=== PATIENT | male | born 1945 | race Caucasian/White ===

== ENCOUNTER 2019-11-11 09:53 | Day surgery (SDC) | payer MEDICARE ==
[2019-11-11] MEDS ORDERED: LACTATED RINGERS 1,000 ML IV SCH (10:07)
[2019-11-11 10:17] VITALS: RESP 16; TEMP 98.3
[2019-11-11] MEDS ORDERED: LIDOCAINE 1% INJ 10MG/ML (20 ML MDV) ONE (10:31)
[2019-11-11] MEDS ORDERED: PROPOFOL 10 MG/ML 20 ML VIAL IV ONE (10:31)
[2019-11-11] MEDS ORDERED: METOPROLOL TARTRATE 5 MG/5 ML VIAL IVP ONE (10:31)
--- NOTE | 2019-11-11 11:24 | P.PCN ---
Date of Procedure: 11/11/19 Description of Procedure: BRIEF HISTORY: Patient is a 74-year-old male presenting for outpatient colonoscopy for follow- up after positive Cologard. Denies any change in bowel habits, blood per rectum or abdominal pain. Does report occasionally having constipation and pain in the left lower quadrant of his abdomen. Last colonoscopy 12 years ago and incomplete per the patient's recollection secondary to severe diverticulosis. PROCEDURE PERFORMED: Colonoscopy with polypectomy. PREOPERATIVE DIAGNOSIS: Positive Cologard, last colonoscopy 12 years ago. ESTIMATED BLOOD LOSS: Minimal. IV sedation per Anesthesia. PROCEDURE: After informed consent was obtained, the patient, was brought into the endoscopy unit. IV sedation was administered by Anesthesia under continuous monitoring. Digital rectal examination was normal. Initially the Olympus CF-190 flexible video colonoscope was then inserted in the rectum, gradually advanced into the cecum without any difficulty. Careful examination was performed as the scope was gradually being withdrawn. Ileocecal valve and the appendiceal orifice were visualized and appeared normal. Prep was good, with some large stool balls secondary to severe diverticulosis. Mucosa of the cecum, ascending colon, transverse colon, descending colon, sigmoid colon, and rectum appeared normal, except for innumerable small and large diverticula noted throughout the colon with a sigmoid stricture related to the diverticula. Diminutive 3 mm sigmoid polyp removed with cold forcep polypectomy.. Retroflexion was performed in the rectum and no lesions were seen. The patient tolerated the procedure well. IMPRESSION: Severe gillis diverticulosis. Sigmoid stricture related to severe diverticulosis. Diminutive sigmoid polyp removed with cold forcep polypectomy. RECOMMENDATIONS: Findings of this examination were discussed with the patient and his family. Okay to resume diet. Okay to resume medication. Await pathology from polypectomy. Given patient's age, any future plans for endoscopy or screening will have to be made in discussion with Dr. Alvarado with repeat colonoscopy recommended in 7 years if medically stable.
[2019-11-11 12:03] VITALS: BP 171/91; PULSE 57
== END 2019-11-11 12:34 | disposition home or self-care (01) ==
LOC: ORWHC2ENDO 09:53
PROVIDERS: ATTEND Internal Medicine
DX: K63.5 Polyp of colon (principal); K57.30 Diverticulosis of large intestine without perforation or abscess without bleeding; K63.3 Ulcer of intestine; I10 Essential (primary) hypertension; Z88.8 Allergy status to other drugs, medicaments and biological substances; Z98.890 Other specified postprocedural states; Z79.899 Other long term (current) drug therapy; Z87.891 Personal history of nicotine dependence
CPT/HCPCS: 88305; 45380; J2001; J2704

== ENCOUNTER → 2022-03-18 | Outpatient (CLI) | payer MEDICARE ==
[2022-03-18 09:55] LABS: Partial Thromboplastin Time 26.6 sec (22.0-30.0); Prothrombin Time 10.5 sec (9.0-12.0)
[2022-03-18 16:20] LABS: HGB 15.2 g/dL (13.0-17.0); MCH 29.6 pg (27.0-32.0); MCHC 32.3 g/dL (32.0-37.0); MCV 91.4 fL (80.0-97.0); Mean Platelet Volume 9.8 fL (9.5-12.2); NRBC Per 100 WBC 0 /100 WBCS (0.0-0.0); Platelet Count 339 X 10*3/uL (140-440); RBC 5.14 X 10*6/uL (4.40-5.60); RDW 13.1 % (11.5-14.5); WBC 7.54 X 10*3/uL (4.50-10.00)
[2022-03-18 17:44] LABS: Appearance,Urine Clear (Clear); Bilirubin,Urine Negative (Negative); Blood,Urine Negative (Negative); Color,Urine Yellow (Yellow); Ketones,Urine Negative (Negative); Nitrite,Urine Negative (Negative); Specific Gravity,Urine 1.014 (1.001-1.030); Urobilinogen,Urine 0.2 (0.2,1.0)
[2022-03-18 18:07] LABS: African American GFR (CKD) 72.3 (60.0-200.0); Albumin 4.3 g/dL (3.8-4.9); Albumin/Globulin Ratio 1.79 (1.60-3.17); Anion Gap 11.3 mmol/L (10.00-18.00); BUN/Creat Ratio 16.73 Ratio (12.00-20.00); Blood Urea Nitrogen 18.9 mg/dL (9.0-27.0); Calcium 9.8 mg/dL (8.7-10.3); Carbon Dioxide 26.1 mmol/L (20.0-27.5); Globulin 2.4 g/dL (1.6-3.3); Non-African American GFR(CKD) 62.4 (60.0-200.0); Potassium 4.6 mmol/L (3.5-5.5); Total Bilirubin 0.4 mg/dL (0.30-1.20); Total Protein 6.8 g/dL (6.2-8.2)
== END | disposition home or self-care (01) ==
LOC: LABPAT 08:59
PROVIDERS: ATTEND Orthopaedic Surgery
DX: Z01.812 Encounter for preprocedural laboratory examination (principal); M16.12 Unilateral primary osteoarthritis, left hip
CPT/HCPCS: 80053; 81003; 85027; 85610; 85730; 87070

== ENCOUNTER 2022-03-29 12:57 | Day surgery (SDC) | payer MEDICARE ==
[~2022-03-29 12:57] MED LIST: ACETAMINOPHEN TAB 500 MG TAB PO PRN; DEXAMETHASONE SOD PHOSPHATE 10 MG/ML 1 ML VIAL IV PRN; DOCUSATE 100 MG CAP PO PRN; FAMOTIDINE 20 MG/2 ML VIAL IVP PRN; KETOROLAC 15 MG/ML 1 ML VIAL IVP PRN; LACTATED RINGERS 1,000 ML IV SCH; MIDAZOLAM 2 MG/2 ML VIAL IV PRN; ONDANSETRON 4 MG/2 ML VIAL IVP PRN; TRANEXAMIC ACID IN NACL,ISO-OS 1,000 MG in SALINE 1 100ML.BAG IVPB PRN; oxyCODONE ER 10 MG TAB.ER.12H PO PRN
[2022-03-29 13:35] VITALS: RESP 16
[2022-03-29] MEDS ORDERED: LABETALOL 5 MG/ML VIAL MDV ONE (15:20)
[2022-03-29] MEDS ORDERED: fentaNYL (PF) 50 MCG/ML 2 ML AMP ONE (15:20)
[2022-03-29] MEDS ORDERED: SUCCINYLCHOLINE CHLORIDE 200 MG/10 ML VIAL IV ONE (15:20)
[2022-03-29] MEDS ORDERED: ROCURONIUM 10 MG/ML (5 ML VIAL) IV ONE (15:20)
[2022-03-29] MEDS ORDERED: PROPOFOL 10 MG/ML 20 ML VIAL IV ONE (15:20)
[2022-03-29] MEDS ORDERED: TRANEXAMIC ACID IN NACL,ISO-OS 1,000 MG/100 ML BAG ONE (15:20)
[2022-03-29] MEDS ORDERED: MIDAZOLAM 2 MG/2 ML VIAL ONE (15:20)
[2022-03-29] MEDS ORDERED: NEOSTIGMINE 1 MG/ML 10 ML VIAL ONE (15:20)
[2022-03-29] MEDS ORDERED: hydrALAZINE HCL 20 MG/ML 1 ML VIAL ONE (15:20)
[2022-03-29] MEDS ORDERED: GLYCOPYRROLATE 0.2 MG/ML 2 ML VIAL ONE (15:20)
[2022-03-29] MEDS ORDERED: LIDOCAINE 2% INJ 20 MG/ML (2 ML VIAL) ONE (15:20)
[2022-03-29] MEDS ORDERED: ePHEDrine 50 MG/ML 1 ML VIAL ONE (15:20)
[2022-03-29] MEDS ORDERED: LACTATED RINGERS 1,000 ML IV ONE ×2 (16:06→17:41)
[2022-03-29] MEDS: ROPIVACAINE/EPI/CLONIDINE/KET 50 ML SYRINGE MISCELLANE PRN ×2 (17:01→17:23)
[2022-03-29] MEDS ORDERED: HYDROcodone/APAP 5-325MG 1 EACH TAB PO PRN (18:01)
[2022-03-29] MEDS ORDERED: hydrOXYzine pamoate 25 MG CAP PO PRN (18:01)
[2022-03-29] MEDS ORDERED: HYDROmorphone 0.5 MG/0.5 ML SYRINGE IVP PRN ×3 (18:01)
[2022-03-29] MEDS ORDERED: NALOXONE 0.4 MG/ML 1 ML VIAL IV PRN (18:01)
--- NOTE | 2022-03-29 18:03 | P.OP ---
Date of Procedure: 03/29/22 Preoperative Diagnosis: 1. Severe left hip osteoarthritis 2. Hypertension 3. History of skin cancer, basal cell carcinoma Postoperative Diagnosis: Same Procedure(s) Performed: Left direct anterior total hip arthroplasty Implants: 1. Mo Trident II Acetabular Cup, Size #52 2. [place] Insignia Size # 5 Femoral Stem, Standard Offset 3. Biolox delta femoral head, 36mm, -2.5 neck Anesthesia: HALLE, regional Surgeon: Grayson Mckeon Gleason Operator #1: Javier Foreman Estimated Blood Loss (ml): 250 IV fluids (ml): 1,200 Pathology: none sent Condition: stable Disposition: PACU Indications for Procedure: I had a long discussion with the patient in the office on the potential risks and complications of an elective total hip replacement through a direct anterior approach. Risks discussed include, but are certainly not limited to, risks from anesthesia, superficial infection requiring local wound care or antibiotics, deep jericho-prosthetic joint infection and the treatment required to eradicate in fection, intraoperative fracture, postoperative periprosthetic fracture, damage to local blood vessels or nerves particularly the lateral femoral cutaneous nerve, delayed wound healing requiring local wound care or possibly surgical debridement, hip dislocation, leg length discrepancy, soft tissue irritation around the total hip implant such as iliopsoas tendinitis or trochanteric bursitis, wear and osteolysis from the implants, squeaking or audible noises, groin pain, thigh pain, heterotopic ossification, stiffness, aseptic loosening of the implants, dissatisfaction with surgical outcome, need for revision surgery, DVT, PE, swelling of the operative extremity, acute coronary event, stroke, failure to thrive, and possibly loss of life or limb. The patient understands that while these are the most common complications after an elective hip replacement there are certainly other less common complications possible. They were given ample time to ask questions regarding the potential compl ications of a hip replacement. Following our discussion the patient provided their verbal and written consent to go forward with an elective total hip replacement. Operative Findings: Severe left hip osteoarthritis Description of Procedure: The patient was identified in the preoperative holding area and the correct hip was marked with my initials. I reviewed the procedure and consent with the patient. All of their questions were answered. The patient was then brought back into the operating room by anesthesia. While on the [facility] anesthesia was administered by the anesthesia team. Preoperative antibiotics and tranexamic acid were also given. After the patient was under anesthesia I examined their ankles to determine their preoperative leg length discrepancy. The skin over the anterior aspect of the hip was shaved to remove hair over the site of planned incision. Both feet and ankles were padded with webril and boots for the Levering were applied. The patient was then carefully transferred onto the Lever[place] table. A perineal post was immediately placed. The arms were placed on arm holders and were well-padded. Both boots were secured to the spars on the Levering table. The patient was positioned so that the pelvis was centered over the post. Nonsterile drapes were applied. A timeout was performed identifying the correct patient, operative extremity, and procedure. At this point fluoroscopy was brought in to take preoperative images of the pelvis and operative hip. Using the standing AP pelvis from the office as a template, a comparable image was obtained with fluoroscopy. A metallic bar was used to create a bi-ischial line for use as a reference to leg length adjustments during the procedure. Global offset was also measured on both the operative and nonoperative leg. Fluoroscopy was then brought out and a pre-scrub using a chlorhexidine scrub brush was performed. The operative limb was then prepped and draped in the standard sterile fashion. An anterior longitudinal incision was made lateral and distal to the ASIS. The skin and subcutaneous tissues were incised sharply. The underlying tensor fascia was identified and incised in its midportion. The fascia was dissected free from the underlying muscle and the muscle belly was retracted. A blunt tipped cobra retractor was placed over the superior neck under the muscle fibers of the gluteus minimus. The deep enveloping fascia of the tensor was incised. The anterior leash of vessels were then identified and cauterized. The fascia between the rectus and the capsule was then incised and the pre-capsular fat was excised. A second Cobra was placed inferior to the neck. The interval between the rectus and iliocapsularis and the hip capsule was developed and a retractor was placed carefully over the anterior rim of the acetabulum. A T-shaped anterior capsulotomy was performed. The superior capsular leaflet was left in place in the inferior capsular flap was excised. The Cobra retractors were placed intracapsularly. We then made a femoral neck osteotomy according to preoperative and intraoperative templating and confirmed the level of the osteotomy using fluoroscopic imaging. The femoral head was removed, passed off to the back table, and sized. The superior capsular flap was excised. Retractors were placed circumferentially exposing the acetabulum. We then circumferentially debrided the acetabulum free of labrum and osteophytes. The pulvinar was removed to fully visualize the cotyloid fossa. We then sequentially reamed to achieve peripheral fit and excellent bleeding subchondral bone. The socket was thoroughly irrigated. The acetabular component was impacted into the appropriate position using fluoroscopy to guide version, inclination, and depth of insertion taking care to have a comparable image of the AP pelvis to the standing image taken in the office. An excellent press-fit was achieved and final position was confirmed using fluoroscopy. The press fit was augmented with bony cancellus dome screws. The liner was then impacted into the socket. Attention was then turned to the femur. The remnant dorsal lateral capsule was excised. The short external rotators were visible and protected. A bone hook was used to confirm appropriate translation of the trochanter away from the acetabulum. The leg was then extended and adducted and the bone hook was used to elevate the femur for broaching. A box osteotome and blunt tipped canal sound was then utilized to gain access to the femoral canal. We then sequentially broached the femur in appropriate anteversion until excellent torsional stability was achieved. The neck cut was brought flush to the trial broach with a calcar planar. A trial neck and head were then placed onto the broach and the hip was atraumatically reduced under direct visualization. External rotation to 90 was performed to assess stability. Fluoroscopy was brought in. An AP and lateral fluoroscopic image of the proximal femur was obtained to assess position and fill of the trial broach. An AP of the pelvis was then obtained and matched to the preoperative image taken. A bi-ischial bar was then placed and measurements were taken to assess changes in length and offset. The hip was then carefully dislocated, the proximal femur was exposed, and the trial implants were removed. The wound and proximal femur was thoroughly irrigated using sterile saline and pulsatile lavage. The final femoral implant was dispensed and gently tapped into place generating an excellent press-fit. The trunnion was cleansed and the final head was tapped into place to engage the Perez taper. The acetabulum was irrigated and visualized to be free of debris. The hip was carefully reduced. Stability was checked clinically with external rotation to 90 and there was no evidence of instability. Final fluoroscopic images were taken. The wound was then thoroughly irrigated and soaked with a dilute Betadine rinse for 3 minutes. 3 L of sterile saline was irrigated through the wound using pulsatile lavage. Local anesthetic cocktail was injected into the soft tissues around the surgical field. A deep drain was placed. The wound was then closed in layers. A sterile dressing was placed over the surgical incision and drain site. The drapes were taken down and the patient was carefully transferred off of the Levering table. Following removal of the boots the leg lengths felt acceptable. The patient was then taken to recovery room having tolerated the procedure well. Javier Foreman PA-C was required as a skilled promotions assistant sales marketing for patient positioning, surgical exposure, retraction, placement of implants, and closure of the surgical wound. PLAN: The patient can weight-bear as tolerated on the operative extremity. 2 doses of postoperative antibiotics. DVT prophylaxis with aspirin 81 mg twice a day based on preoperative risk stratification. Physical therapy for gait training. Discontinue drain postoperative day #1 if output is less than 100 mL per shift.
[2022-03-29] MEDS: HYDROmorphone 0.5 MG/0.5 ML SYRINGE IVP PRN ×2 (18:25→18:36)
--- NOTE | 2022-03-29 20:42 | XR ---
EXAMINATION TYPE: XR Hip Limited LT DATE OF EXAM: 03/29/2022 COMPARISON: NONE HISTORY: Hip surgery TECHNIQUE: 32 seconds fluoroscopy time was recorded. FINDINGS: Multiple fluoroscopic images show placement of a left hip prosthesis. Components are in goo d position. IMPRESSION: No complicating process is seen.
[2022-03-29] MEDS ORDERED: SENNOSIDES-DOCUSATE SODIUM 1 EACH TAB PO SCH (21:00)
[2022-03-29] MEDS: ASPIRIN 81 MG PO SCH (21:58)
[2022-03-29] MEDS: HYDROcodone/APAP 5-325MG 1 EACH TAB PO PRN (22:25)
[2022-03-30] MEDS ORDERED: tiZANidine 4 MG TAB PO PRN
[2022-03-30] MEDS: LACTATED RINGERS 1,000 ML IV SCH (06:52)
--- NOTE | 2022-03-30 07:39 | FL ---
EXAMINATION TYPE: FL guidance operating room DATE OF EXAM: 03/29/2022 FLUOROSCOPY Fluoroscopy time of 32 seconds was used during anterior left total hip arthroplasty. 6 image/s docum ent/s the procedure.
[2022-03-30] MEDS: ASPIRIN 81 MG PO SCH (08:11)
[2022-03-30 08:20] VITALS: PULSE 73; TEMP 98.6
[2022-03-30 08:21] VITALS: BP 125/67
[2022-03-30] MEDS: HYDROcodone/APAP 5-325MG 1 EACH TAB PO PRN (08:21)
[2022-03-30] MEDS ORDERED: atenoloL 25 MG TAB PO SCH (09:00)
[2022-03-30] MEDS ORDERED: TRIAMTERENE-HCTZ 37.5-25MG 1 EACH CAP PO SCH (09:00)
[2022-03-30] MEDS ORDERED: LORATADINE 10 MG TAB PO PRN (09:00)
[2022-03-30] MEDS ORDERED: PRAVASTATIN SODIUM 20 MG TAB PO SCH (09:00)
[2022-03-30] MEDS ORDERED: CHOLECALCIFEROL 125 MCG (5000 IU) TABLET PO SCH (09:00)
[2022-03-30 10:35] LABS: HCT 40.3 % (39.6-50.0); MCH 29.6 pg (27.0-32.0); MCHC 32.3 g/dL (32.0-37.0); MCV 91.8 fL (80.0-97.0); Mean Platelet Volume 10.3 fL (9.5-12.2); NRBC Per 100 WBC 0 /100 WBCS (0.0-0.0); Platelet Count 330 X 10*3/uL (140-440); RBC 4.39 X 10*6/uL (4.40-5.60); RDW 13.2 % (11.5-14.5); WBC 18.19 X 10*3/uL (4.50-10.00)
--- NOTE | 2022-03-30 11:53 | P.DS ---
Providers Expected date of discharge: 03/30/22 Attending physician: Grayson Mckeon Consults: 03/29/22 18:01 Consult Physician Routine Consulting Provider: Sahil Chavez Consult Reason/Comments: medical management Do you want consulting provider notified?: Yes Primary care physician: Karla Alvarado [facility] Hospital Course: This is a 76-year-old male who has been followed in our office by Dr. Mckeon f or continued complaints of left hip pain due to left hip osteoarthritis. Treatment options were discussed, and patient elected to undergo a left total hip arthroplasty. Patient was seen pre-operatively by Dr. Alvarado and cleared for surgery. Patient underwent a direct anterior left total hip arthroplasty on 03/29/22. The procedure was performed without complication or sequelae. The patient is doing fairly well postoperatively. Vital signs and labs are stable on postoperative day #1. Patient was examined bedside today with Dr. Mckeon. Patient states he is overall doing very well and the pain in his left hip is well-controlled. He has been ambulating with a walker with minimal assistance. He passed physical therapy this morning. Patient is comfortable being discharged home today. On examination, the patient is sitting up in the bed in no apparent distress. He is alert and orientated 3. On inspection of the left hip, there is a clean, dry, intact surgical dressing in place. There is no bleeding or drainage to the dressing. Patient has good strength and ROM of the left ankle and toes. Femoral nerve function intact. Motor and sensory function is intact of the left lower extremity. The dorsalis pedis pulse is easily palpable, the left lower extremity is warm and well perfused with brisk capillary refill. Calf is soft and non-tender to palpation. Hemovac drain was removed bedside this morning. Patient is discharged home with home health in good condition, pending medical clearance. Patient will follow-up with Dr. Mckeon in the office in 2 weeks. Please see med rec for accurate list of discharge medication. Plan - Discharge Summary Discharge Rx Participant: No New Discharge Prescriptions: New HYDROcodone/APAP 5-325MG [[place] 5-325] 1 - 2 tab PO Q6HR PRN 7 Days #32 tab PRN Reason: Pain Aspirin 81 mg PO BID 30 Days #60 tab Omeprazole 40 mg PO DAILY 30 Days #30 cap No Action Triamterene-Hctz 37.5-25Mg [Dyazide 37.5-25 Capsule] 1 each PO DAILY Pravastatin Sodium [Pravachol] 10 mg PO DAILY atenoloL [Tenormin] 25 mg PO DAILY Cholecalciferol [Vitamin D3 (25 Mcg = 1000 Iu)] 5,000 unit PO DAILY tiZANidine [Zanaflex] 4 mg PO Q6HR PRN PRN Reason: Muscle Spasm Cetirizine HCl [Zyrtec] 10 mg PO DAILY PRN PRN Reason: allergies Discharge Medication List Pravastatin Sodium [Pravachol] 10 mg PO DAILY 12/24/13 [History] Triamterene-Hctz 37.5-25Mg [Dyazide 37.5-25 Capsule] 1 each PO DAILY 12/24/13 [History] atenoloL [Tenormin] 25 mg PO DAILY 12/24/13 [History] Cholecalciferol [Vitamin D3 (25 Mcg = 1000 Iu)] 5,000 unit PO DAILY 11/11/19 [History] Cetirizine HCl [Zyrtec] 10 mg PO DAILY PRN 03/27/22 [History] tiZANidine [Zanaflex] 4 mg PO Q6HR PRN 03/27/22 [History] Aspirin 81 mg PO BID 30 Days #60 tab 03/30/22 [Rx] HYDROcodone/APAP 5-325MG [[place] 5-325] 1 - 2 tab PO Q6HR PRN 7 Days #32 tab 03/30/22 [Rx] Omeprazole 40 mg PO DAILY 30 Days #30 cap 03/30/22 [Rx] Follow up Appointment(s)/Referral(s): Residential Home[facility]Health [NON-STAFF] - 1-2 Days Grayson Mckeon MD [Medical Doctor] - 04/10/22 9:30 am Patient Instructions/Handouts: Anterior Hip Replacement (DC) Activity/Diet/Wound Care/Special Instructions: Weight-bear to tolerance on operative extremity with a walker. Keep operative dressings intact until follow-up appointment in the office. Call the office if dressing becomes saturated or falls off. May shower over dressing. Take pain medications as prescribed. Take aspirin 81 mg daily 4 weeks for blood clot prevention. Follow-up in the office in 2 weeks at [facility]. Call the office with any questions or concerns, Discharge Disposition: HOME WITH HOME HEALTH SERVICES
[2022-03-30 12:07] LABS: Basophils # (A) 0.02 X 10*3/uL (0.00-0.10); Basophils % (A) 0.1 %; Eosinophils # (A) 0.01 X 10*3/uL (0.04-0.35); Eosinophils % (A) 0.1 %; Immature Grans, Automated 0.5 %; Lymphocytes # (A) 0.91 X 10*3/uL (0.90-5.00); Monocytes # (A) 1.51 X 10*3/uL (0.20-1.00); Monocytes % (A) 8.3 %; Neutrophils # (A) 15.65 X 10*3/uL (1.80-7.70)
[2022-03-30 12:08] LABS: RBC Morphology NORMAL
--- NOTE | 2022-03-30 13:19 | P.HPIM ---
History of Present Illness H&P Date: 03/30/22 Tyree Crystal, is a 76-year-old male who was admitted to [facility] by Dr. Mckeon and underwent left total hip arthroplasty on 03/29/2022, patient was admitted to medical floor post surgery, consultation was requested for medical management while hospitalized, patient has a known history of hypertension, history of hyperlipidemia history of vitamin D deficiency history of osteoarthritis, and history of basal cell carcinoma skin cancer, history of rectal bleeding with colon polyps with colonoscopy and polypectomy in 2019. On review of systems patient is alert and oriented 3 in no apparent distress he is complaining of mild to moderate pain in the surgical area otherwise he denies any complaints there is no fever or chills no headache or dizziness no chest pain no shortness of breath no cough no nausea or vomiting no abdominal pain no diarrhea no blood in the stools no burning with urination no frequency or urgency and no hematuria. Past Medical History Past Medical History: Cancer, Hyperlipidemia, Hypertension, Osteoarthritis (OA) Additional Past Medical History / Comment(s): hx. basal skin cancer-had removed, cysts on liver-no tx. for History of Any Multi-Drug Resistant Organisms: None Reported Past Surgical History: Cholecystectomy, Orthopedic Surgery Additional Past Surgical History / Comment(s): right rotator cuff r epair,arthroscopy right knee Past Anesthesia/Blood Transfusion Reactions: No Reported Reaction Additional Past Anesthesia/Blood Transfusion Reaction / Comment(s): nerve block didn't take w/shoulder surg. Past Psychological History: No Psychological Hx Reported Smoking Status: Former smoker Past Alcohol Use History: Occasional Additional Past Alcohol Use History / Comment(s): quit smoking @age of 37, started in teens, <ppd Past Drug Use History: None Reported - Past Family History Mother Family Medical History: No Reported History Medications and Allergies Home Medications Medication Instructions Recorded Confirmed Type Pravastatin Sodium [Pravachol] 10 mg PO DAILY 12/24/13 03/27/22 History Triamterene-Hctz 37.5-25Mg 1 each PO DAILY 12/24/13 03/27/22 History [Dyazide 37.5-25 Capsule] atenoloL [Tenormin] 25 mg PO DAILY 12/24/13 03/27/22 History Cholecalciferol [Vitamin D3 (25 5,000 unit PO DAILY 11/11/19 03/27/22 History Mcg = 1000 Iu)] Cetirizine HCl [Zyrtec] 10 mg PO DAILY PRN 03/27/22 03/27/22 History tiZANidine [Zanaflex] 4 mg PO Q6HR PRN 03/27/22 03/27/22 History Allergies Allergy/AdvReac Type Severity Reaction Status Date / Time No Known Allergies Allergy Verified 03/29/22 13:26 Physical Exam Vitals: Vital Signs Temp Pulse Resp BP Pulse Ox 03/30/22 02:00 98.2 F 87 16 100/57 95 03/29/22 21:29 16 03/29/22 21:00 61 142/68 97 03/29/22 20:45 61 131/80 98 03/29/22 20:30 68 167/82 98 03/29/22 20:15 73 151/82 99 03/29/22 20:00 83 157/84 98 03/29/22 19:45 72 140/70 03/29/22 19:30 97.8 F 64 168/77 100 03/29/22 19:01 67 16 135/72 95 03/29/22 18:46 63 16 128/60 96 03/29/22 18:31 64 16 127/63 91 L 03/29/22 18:16 67 16 97 03/29/22 18:01 97.1 F L 68 16 114/53 97 03/29/22 13:34 97.5 F L 61 16 179/83 97 Intake and Output 03/29/22 03/30/22 03/30/22 22:59 06:59 14:59 Intake Total 1999 Output Total 250 0 Balance 1750 0 Intake: IV 1999 Output: Drainage 0 Left Hip 0 Estimated Blood Loss 250 Other: Voiding Method Toilet Urinal # Voids 1 Weight 105.1 kg In general patient is alert and oriented x 3 in no distress HEENT head normocephalic and atraumatic Neck is supple no JVD no goiter no lymphadenopathy no carotid bruit Chest examination is clear to auscultation no crackles no wheezing Cardiac exam reveals regular heart sounds S1 and S2 no gallops no murmurs Abdomen is soft nontender no organomegaly with normal bowel sounds Extremity exam reveals no edema no cyanosis or clubbing Neurological examination reveals no gross focal deficits Thrombosis Risk Factor Assmnt - Choose All That Apply Each Factor Represents 1 point: Obesity (BMI >25) Other Risk Factors: Yes Each Risk Factor Represents 3 Points: Age 75 years or older Each Risk Factor Represents 5 Points: Elective major lower extremity arthoplasty Thrombosis Risk Factor Assessment Total Risk Factor Score: 9 Thrombosis Risk Factor Assessment Level: High Risk Assessment and Plan Plan: Advanced osteoarthritis, status post left total hip arthroplasty Underlying history of hypertension Underlying history of hyperlipidemia Previous history of colon polyps and rectal bleeding Previous history of basal cell carcinoma of the skin Underlying history of vitamin D deficiency At this time patient is admitted to medical floor Home medications reviewed and reordered Pain management and DVT prophylaxis as per orthopedic protocol Will follow closely during this admission
== END 2022-03-30 12:54 | disposition home health service (06) ==
LOC: OR 12:57 → 4SSUR 17:40 → OR 03-30 12:54
PROVIDERS: ATTEND Orthopaedic Surgery
DX: M16.12 Unilateral primary osteoarthritis, left hip (principal); I10 Essential (primary) hypertension; E78.5 Hyperlipidemia, unspecified; Z85.828 Personal history of other malignant neoplasm of skin; Z87.19 Personal history of other diseases of the digestive system; E55.9 Vitamin D deficiency, unspecified; Z98.890 Other specified postprocedural states; Z87.891 Personal history of nicotine dependence; F10.10 Alcohol abuse, uncomplicated; Z79.83 Long term (current) use of bisphosphonates; Z79.899 Other long term (current) drug therapy; Z79.4 Long term (current) use of insulin; Z79.810 Long term (current) use of selective estrogen receptor modulators (SERMs)
CPT/HCPCS: 27130; 94760; 97161; 86900; 86901; 85025; 86850; 88300; 73501; C1776; J2250; J0330; J0360; J1100; J2710; J0690 ×2; J2405; J3010; J1885; J2704; J1170; J2001